=== PATIENT | male | born 1995 | race Caucasian/White ===

== ENCOUNTER 2016-11-20 15:03 | Emergency (ER) | payer OTHER | END 2016-11-20 15:55 | disposition home or self-care (01) | LOC: ER 15:03 | DX: J11.1 Influenza due to unidentified influenza virus with other respiratory manifestations (principal); R51 Headache; Z88.0 Allergy status to penicillin; Z88.1 Allergy status to other antibiotic agents | CPT/HCPCS: 87502 ==